=== PATIENT | male | born 1990 | race Caucasian/White ===

== ENCOUNTER → 2017-11-30 16:45 | Outpatient (CLI) | payer SELFPAY ==
[2017-11-30 18:29] LABS: Semen Viscosity Normal (Normal); Volume,Semen 3.8 ml (2.0-5.0)
[2017-11-30 18:30] LABS: Motility Quality Rapid Progression (Mod-Rapid); PH,Semen 8.5 (7.3-8.3); Sperm Count 101 mil/mm3 (20-160); Sperm Morphology Normal (Normal); Sperm Motility 80 % (50-90)
[2017-11-30 20:20] LABS: 3Hr Motility Quality Rapid Progression (Mod-Rapid); 3Hr Sperm Motility 80 % (50-60)
== END ==
PROVIDERS: Visit Provider Obstetrics & Gynecology
DX: Z31.41 Encounter for fertility testing (principal)
CPT/HCPCS: 89320

== ENCOUNTER → 2018-09-02 09:40 | Outpatient (POV) | payer SELFPAY | PROVIDERS: Visit Provider Dentist | DX: Z00.00 Encounter for general adult medical examination without abnormal findings (principal) ==

== ENCOUNTER 2021-09-28 10:23 | Emergency (ER) | payer MEDICAID, SELFPAY ==
[2021-09-28] VITALS (7 sets, daily range): BP systolic 118–132; BP diastolic 66–74; PULSE 74–87; RESP 12–18; TEMP 36.6–37.4; O2SAT 98–99; BMI 22.4
--- NOTE | 2021-09-28 11:07 | HMH.EDGENADL ---
ED Disposition Clinical Impression: Abdominal pain, Diarrhea, Nausea Disposition: Home, Self-Care Condition on Discharge: Good Instructions: DI for Nausea -- Adult, DI for Diarrhea and Traveler's Diarrhea -- Adult Prescriptions: Dicyclomine HCl [Bentyl 10mg capsule] 10 mg PO TID PRN #12 cap PRN Reason: abdominal cramping Transmission Status: Pending to [facility] # Loperamide HCl [Loperamide] 2 mg PO QID PRN #16 tab PRN Reason: Diarrhea Transmission Status: Pending to [facility] # Referrals: Capo Abreu MD [Primary Care Provider] - - Critical Care Critical Care Time: No Attestation: On , the high probability of a clinically significant, sudden or life threatening deterioration of the following system(s) required my full and direct attention, intervention and personal management. The time I documented below is in addition to time spent performing reported procedures but includes the following listed in this critical care notation. Medical Decision Making - Donn Inquiry Pt receiving controlled substance: No Vital Signs: 09/28/21 10:24 09/28/21 12:00 09/28/21 12:04 Temperature 99.4 F Temperature Source Oral Pulse Rate 76 75 Pulse Rate [Left Radial] 78 Respiratory Rate 18 16 Blood Pressure 122/67 122/67 Blood Pressure [Right Arm] 129/71 Blood Pressure Mean 79 Blood Pressure Mean [Right Arm] 90 Blood Pressure Source Automatic Cuff Blood Pressure Position Sitting 02 Sat by Pulse Oximetry 98 98 98 Oxygen Delivery Method Room Air Room Air - Lab Data Lab Results 09/28/21 11:15: WBC 11.2 H, RBC 5.38, Hgb 16.4, Hct 48.1, MCV 89.3, MCH 30.4, MCHC 34.0, RDW 12.7, Plt Count 203, MPV 8.2, Neut % (Auto) 80.4 H, Lymph % (Auto) 12.1, [place] % (Auto) 4.9, Eos % (Auto) 2.2, Baso % (Auto) 0.4, Neut # (Auto) 9.0 H, Lymph # (Auto) 1.4, [place] # (Auto) 0.5, Eos # (Auto) 0.3, Baso # (Auto) 0.0 09/28/21 11:15: Sodium 134 L, Potassium 3.6, Chloride 102, Carbon Dioxide 26, Anion Gap 9.6, BUN 10, Creatinine 0.90, Estimated Creat Clear 134, Estimated GFR 98, Est GFR ( Amer) 119, Glucose 84, Calcium 8.5, Total Bilirubin 0.9, AST 28, ALT 28, Alkaline Phosphatase 67, Total Protein 7.6, Albumin 4.8, Globulin 2.8, Albumin/Globulin Ratio 1.7, Lipase 40 09/28/21 11:15: Lactate 0.7 09/28/21 11:47: Urine Color Yellow, Urine Appearance Clear, Urine pH 6.0, Ur Specific [place] <= 1.005, Urine Protein Negative, Urine Glucose (UA) Negative, Urine Ketones Negative, Urine Blood Negative, Urine Nitrate Negative, Urine Bilirubin Negative, Urine Urobilinogen 0.2, Ur Leukocyte Esterase Negative, Urine RBC None, Urine WBC None, Ur Squamous Epith Cells Occasional, Urine Bacteria Trace Result diagrams: 09/28/21 11:15 09/28/21 11:15 Orders (Tests/Meds): ED MEDICATIONS Discontinued Medications Generic Name Dose Route Start Last Admin Trade Name Freq PRN Reason Stop Dose Admin Belladonna Alkaloids 60 ml 09/28/21 11:06 09/28/21 11:33 Gi Cocktail 60ml Udc PO 09/28/21 11:07 60 ml ONCE ONE Administration Dicyclomine HCl 20 mg 09/28/21 11:06 09/28/21 11:34 Dicyclomine 10mg Capsule PO 09/28/21 11:07 20 mg ONCE ONE Administration Lactated Ringer's 1,000 mls @ 999 mls/hr 09/28/21 11:15 09/28/21 11:34 Lactated Ringer's 1000 Ml Bag IV 09/28/21 12:15 999 mls/hr .Q1H1M TANYA Administration Iopamidol 75 ml 09/28/21 12:37 09/28/21 12:38 Iopamidol-370 (76%);100ml Bottle IV 09/28/21 12:38 75 ml ONCE ONE Administration Ondansetron HCl 4 mg 09/28/21 11:05 09/28/21 11:34 Ondansetron 4mg/2ml Vial IV 09/28/21 11:06 4 mg ONCE ONE Administration Sodium Chloride 10 ml 09/28/21 12:37 09/28/21 12:38 Sodium Chloride 0.9% 10ml Syr (Rad Only) IV 09/28/21 12:38 10 ml ONCE ONE Administration ORDERS Category Date Time Status Rapid PCR Covid and Flu A/B Stat Lab 09/28/21 11:05 Ordered Medical Decision Narrative: 31 yo male pr
[2021-09-28 11:26] LABS: Basophils % 0.4 % (0.1-2.0); Eosinophils # 0.3 K/mm3 (0.0-0.4); Eosinophils % 2.2 % (0.1-12.0); Hematocrit 48.1 % (42.0-52.0); Hemoglobin 16.4 g/dL (14.1-18.0); Lymphocytes # 1.4 K/mm3 (0.7-4.5); Lymphocytes % 12.1 % (10-50); Mean Corpuscular Hemoglobin 30.4 pg (27.0-31.2); Mean Corpuscular Volume 89.3 fl (80-94); Mean Platelet Volume 8.2 fl (7.4-10.4); Monocytes # 0.5 K/mm3 (0.1-1.0); Monocytes % 4.9 % (1.7-9.3); Neutrophils % 80.4 % (37.0-80.0); Platelet Count 203 K/mm3 (142-424); Red Blood Count 5.38 M/mm3 (4.60-6.20); Red Cell Distribution Width 12.7 % (11.5-17.5); White Blood Count 11.2 K/mm3 (4.8-10.8)
[2021-09-28 11:27] LABS: Chloride 102 mmol/L (98-107)
[2021-09-28 11:28] LABS: Potassium 3.6 mmoL/L (3.5-5.1); Sodium 134 mmol/L (136-145)
[2021-09-28 11:30] LABS: Alanine Aminotransferase 28 U/L (12-78); Alkaline Phosphatase 67 U/L (38-126); Anion Gap 9.6 mEq/L (5-15); Aspartate Amino Transferase 28 U/L (17-59); Bilirubin,Total 0.9 mg/dl (0.2-1.3); Blood Urea Nitrogen 10 mg/dl (9-20); Carbon Dioxide 26 mmol/L (22.0-30.0); Creatinine Clearance Estimated 134 mL/min (50-200); Estimated Glomerular Filt Rate 98 ml/min (>60); GFR (African American) 119 ML/MIN (>60); Lactic Acid 0.7 mmol/L (0.7-2.1)
[2021-09-28 11:31] LABS: Albumin Level 4.8 g/dl (3.5-5.0); Albumin/Globulin Ratio 1.7 (1.1-1.8); Calcium 8.5 mg/dl (8.4-10.2); Globulin 2.8 g/dL (1.3-3.2); Glucose 84 mg/dl (74-100); Lipase 40 U/L (23-300); Total Protein,Serum 7.6 g/dl (6.3-8.2)
[2021-09-28 12:02] LABS: Microscopic, Urine URINE MICROSCOPIC (MICROSCOPIC)
[2021-09-28 12:05] LABS: Appearance,Urine CLEAR (Clear); Bilirubin,Urine Negative (Negative); Blood, Urine Negative (Negative); Color,Urine YELLOW (Yellow); Glucose,Urine (UA) Negative (Negative); Ketones,Urine Negative (Negative); Leukocyte Esterase,Urine Negative (Negative); Nitrate,Urine Negative (Negative); Protein,Urine Negative (Negative); Specific Gravity, Urine <= 1.005 (1.005-1.030); Urobilinogen,Urine 0.2 EU/dl (0.2)
--- NOTE | 2021-09-28 12:12 | CT_ITS ---
PROCEDURE INFORMATION: Exam: CT Abdomen And Pelvis With Contrast Exam date and time: 09/28/2021 12:12 PM Age: 31 years old Clinical indication: Other: Diarrhea 2 weeks and rlq pain; Additional info: Maximal ttp in rlq, HX progressive diarrhea TECHNIQUE: Imaging protocol: Computed tomography of the abdomen and pelvis with contrast. Radiation optimization: All CT scans at this facility use at least one of these dose optimization techniques: automated exposure control; mA and/or kV adjustment per patient size (includes targeted exams where dose is matched to clinical indication); or iterative reconstruction. Contrast material: ISOVUE; Contrast volume: 75 ml; Contrast route: IV; COMPARISON: No relevant prior studies available. FINDINGS: Liver: The liver is normal in appearance, without evidence of mass or intrahepatic bile duct dilatation. Gallbladder and bile ducts: The gallbladder is normal appearance, without evidence of gallbladder wall thickening or pericholecystic fluid. Pancreas: The pancreas is normal in appearance, without evidence of mass, cyst, peripancreatic inflammatory change, or pancreatic duct dilatation. Spleen: The spleen is normal in appearance. Adrenal glands: Both adrenal glands are normal in appearance, without evidence of mass or focal abnormality. Kidneys and ureters: The left kidney is normal in appearance, without evidence of nephrolithiasis or hydronephrosis. There are focal areas of cortical thinning and scar in the right kidney. There is no nephrolithiasis or hydronephrosis. Stomach and bowel: The stomach is normal in appearance, without evidence of mass or wall thickening. There is mild fluid-filled dilatation distention of several loops of small bowel, mostly jejunum and proximal ileum. The terminal ileum and cecum are within normal limits. The ascending colon is incompletely distended. There may be some bowel wall thickening. There may be some bowel wall thickening versus incomplete distension of the descending colon. The sigmoid colon is nondistended. Appendix: No evidence of appendicitis. The appendix is not clearly identified. Intraperitoneal space: Unremarkable. No free air. No significant fluid collection. Vasculature: Unremarkable. No abdominal aortic aneurysm. Lymph nodes: Unremarkable. No enlarged lymph nodes. Urinary bladder: Unremarkable as visualized. Reproductive: Unremarkable as visualized. Bones/joints: Unremarkable. No acute fracture. Soft tissues: Unremarkable. IMPRESSION: 1. Mild fluid-filled distention of multiple loops of small bowel, mostly jejunum and proximal ileum. Additionally, there is all possible bowel wall thickening versus incomplete distension of portions of the colon. No perienteric or pericolonic inflammatory stranding of mesenteric fat is identified. These are nonspecific findings which may be seen with an infectious or inflammatory enteritis or enterocolitis. Clinical correlation is recommended. 2. Additional incidental findings as described. Please see above for detail.
[2021-09-28 12:24] LABS: Bacteria,Urine Trace /lpf; Squamous Epithelial Cell,Urine Occasional #/hpf (0-5)
== END 2021-09-28 14:57 | disposition home or self-care (01) ==
PROVIDERS: Emergency Provider Student in an Organized Health Care Education/Training Program; PCP Emergency Medicine
DX: K58.0 Irritable bowel syndrome with diarrhea (principal)
CPT/HCPCS: 74177; 80053; 81001; 83605; 83690; 85025; 96365; 96374; 96375; 99283; 99284; J2405; Q9967

== ENCOUNTER 2023-02-12 17:24 | Emergency (ER) | payer MEDICAID, SELFPAY ==
[2023-02-12 17:43] VITALS: BP 138/68; PULSE 67; RESP 18; TEMP 36.8; O2SAT 97; BMI 21.2
--- NOTE | 2023-02-12 17:46 | EXP.UTC ---
Discharge Plan Disposition Patient Disposition: Home, Self-Care Condition: Good Prescriptions Prescriptions: New ibuprofen [IBU] 800 mg tablet 800 mg PO Q8HP PRN (Reason: Moderate Pain) Qty: 30 0RF dicyclomine 10 mg capsule 10 mg PO TID PRN (Reason: abdominal pain) Qty: 30 0RF No Action loperamide 2 mg tablet 2 mg PO QID PRN (Reason: Diarrhea) Qty: 16 0RF Rx Instructions: No more than total of 8 mg (4 tabs) per day. Take one tab as needed up for diarrhea/loose stools up to four times per day. polyethylene glycol 3350 17 gram/dose powder 17 g PO BID Qty: 238 2RF dicyclomine 10 mg capsule 10 mg PO TID PRN (Reason: abdominal cramping) Qty: 30 0RF Referrals Follow up/Referrals: Capo Abreu MD [Primary Care Provider] - See instructions Activity Restrictions/Add. Instructions Additional Instructions/Restrictions: Go home and rest. It would be best if you rested tomorrow too. No heavy lifting. No twisting for the next couple of days. Take the ibuprofen as directed. Follow up with your regular doctor. GO TO THE ER FOR ANY WORSENING SYMPTOMS OR CONCERN, ESPECIALLY BOWEL OR BLADDER ISSUES, SADDLE AREA NUMBNESS, FEVER, ETC Clinical Impressions Clinical Impression: Back pain, thoracic Stand Alone Forms Stand Alone Forms: Work/School Release Instructions Patient Instructions: Ibuprofen, DI for Thoracic Back Pain, Thoracic Back Pain Discharge ED Provider: Todd Dial [facility] General Stated complaint: back and pelvic pain Time Seen by Provider: 02/12/23 17:45 History of Present Illness Provider Complaint: He states that he has had low back pain since this morning. He denies any known injury. His brother was recently diagnosed with a UTI with similar symptoms, so he came in to be checked for that. Related Data Previous Rx's Medication Instructions Recorded loperamide 2 mg tablet 2 mg PO QID PRN Diarrhea #16 tabs 10/04/21 polyethylene glycol 3350 17 17 g PO BID #238 grams 10/04/21 gram/dose oral powder dicyclomine 10 mg capsule 10 mg PO TID PRN abdominal 11/04/21 cramping #30 caps dicyclomine 10 mg capsule 10 mg PO TID PRN abdominal pain 02/12/23 #30 caps ibuprofen 800 mg tablet (IBU) 800 mg PO Q8HP PRN Moderate Pain 02/12/23 #30 tabs Allergies Allergy/AdvReac Type Severity Reaction Status Date / Time No Known Allergies Allergy Verified 10/04/21 16:26 [facility] Disclaimer: The information contained in this section may have been updated after the patient was seen, as this information can be updated by other users. Social History Smoking Status: Current every day smoker alcohol intake: never current occupational status: employed Travel in the last 8 weeks: None ROS Obtained: Yes All systems reviewed & no additional complaints except as documented Constitutional Constitutional: Denies chills and Denies fever(s) Eyes Eyes: Denies eye discharge ENT Ears, Nose, Mouth, and Throat: Denies dizziness, Denies otalgia and Denies sore throat Cardiovascular Cardiovascular: Denies chest pain Respiratory Respiratory: Denies shortness of breath, Denies chest congestion, Denies cough, Denies stridor and Denies wheezing Gastrointestinal Gastrointestingal: Denies nausea or vomiting Musculoskeletal Musculoskeletal: Reports system reviewed and no additional complaints, except as documented and Denies arthralgias Integumentary/Breasts Skin/Breast: Denies rash Neurologic Neurologic: Denies dizziness and Denies paresthesias Allergic/Immunologic Allergic/Immunologic: Denies wheezing Physical Exam General General appearance: alert and in no apparent distress Head Head exam: atraumatic, normocephalic and normal inspection Eye Eye exam: Present normal appearance, PERRL and EOMI ENT ENT exam: Present normal exam, normal oropharynx, mucous membranes moist, TM's normal bilaterally and normal exter
[2023-02-12 18:10] LABS: Microscopic, Urine URINE MICROSCOPIC (MICROSCOPIC)
[2023-02-12 18:16] LABS: Appearance,Urine CLEAR (Clear); Bilirubin,Urine Negative (Negative); Blood, Urine Negative (Negative); Color,Urine YELLOW (Yellow); Glucose,Urine (UA) Negative (Negative); Ketones,Urine Negative (Negative); Leukocyte Esterase,Urine Negative (Negative); Nitrate,Urine Negative (Negative); PH,Urine 5.5 (5.0-8.5); Protein,Urine Negative (Negative); Urobilinogen,Urine 0.2 EU/dl (0.2)
[2023-02-12 18:21] LABS: Squamous Epithelial Cell,Urine Occasional #/hpf (0-5); WBC,Urine Occasional #/hpf (0-3)
[2023-02-12 18:42] VITALS: BP 138/68; PULSE 67; RESP 18; TEMP 36.8; O2SAT 97
== END 2023-02-12 18:43 | disposition home or self-care (01) ==
PROVIDERS: Emergency Provider Nurse Practitioner Family; PCP Emergency Medicine
DX: M54.6 Pain in thoracic spine (principal); F17.210 Nicotine dependence, cigarettes, uncomplicated
CPT/HCPCS: 81001; 87086; 99204; 99212; G0463

== ENCOUNTER 2023-04-30 09:30 | Emergency (ER) | payer MEDICAID, SELFPAY ==
[2023-04-30 09:40] VITALS: BP 134/78; PULSE 57; RESP 19; TEMP 36.7; O2SAT 98; BMI 22.9
--- NOTE | 2023-04-30 09:53 | EXP.UTC ---
Discharge Plan Disposition Patient Disposition: Home, Self-Care Condition: Good Prescriptions Prescriptions: New benzonatate 100 mg capsule 100 mg PO TID PRN (Reason: cough) Qty: 30 0RF methylprednisolone [Medrol (Ramiro)] 4 mg tablets,dose pack See Rx Instructions .Route .COMPLEX 6 Days Qty: 21 0RF Rx Instructions: taper pack; azithromycin [Zithromax Z-Ramiro] 250 mg tablet See Rx Instructions .ROUTE .COMPLEX 5 Days Qty: 6 0RF Rx Instructions: For 250 mg dose pack: take 500 mg today (day 1), then 250 mg for 4 days (days 2-5) ondansetron 4 mg tablet,disintegrating 4 mg PO Q8H PRN (Reason: nausea and vomiting) Qty: 10 0RF Referrals Follow up/Referrals: Capo Abreu MD [Primary Care Provider] - See instructions Activity Restrictions/Add. Instructions Additional Instructions/Restrictions: *Monitor Temp, Over the counter Motrin or Tylenol as directed/as needed Tylenol every 4 hours and Motrin every 6 hours (as long as your family doctor has told you that you can take it) for fever or pain. and straight to ER if unable to lower temp less than 101.0 after medication given *Warm salt water gargles may help to soothe the throat *Throat Lozenges? *Warm fluids like tea with honey may help to soothe the throat? *Sleep elevated *Humidifier/Vaporizer Your throat swab was sent for culture. Those results are typically sent to your primary care. Be sure to follow up in 2-3 days with your family doctor/primary care physician if no improvement so they can review those result and treat if necessary. If you don?t have a primary care doctor, I recommend you get one but in the mean time, you will have to return to a walk in clinic Follow up IMMEDIATELY for new or worsening symptoms or no Noticeable improvement over the next 48-72 hours. 911 for difficulty breathing or swallowing Clinical Impressions Clinical Impression: Pharyngitis Qualifiers: Pharyngitis/tonsillitis etiology: unspecified etiology Qualified Code(s): J02.9 - Acute pharyngitis, unspecified Instructions Patient Instructions: Sore Throat, Nausea and Vomiting-Adult Discharge ED Provider: Darya Santo [facility] [place] HPI General Stated complaint: suspected strep vomiting congestion Mode of Arrival: Ambulatory Source of Information: Patient Limitations: No Limitations Time Seen by Provider: 04/30/23 09:53 Description of Symptoms (Recalled from Triage Doc. by RN): PATIENT C/O SORE THROAT, FATIGUE, AND VOMITING SINCE YESTERDAY HEENT Symptoms (Recalled from RN notes): Yes Resp Symptoms (Recalled from RN notes): No Skin Symptoms (Recalled from RN notes): No MS Symptoms (Recalled from RN notes): No Functional Status (Recalled from RN notes): WNL History of Present Illness Provider Complaint: Patient states that he feels like he may have strep throat States that he has been having sore throat, feeling achy and n/v States that this morning his throat was hurting worse so he came in to get checked Related Data Previous Rx's Medication Instructions Recorded azithromycin 250 mg tablet See Rx Instructions PO .COMPLEX 5 04/30/23 (Zithromax Z-Ramiro) days #6 tabs benzonatate 100 mg capsule 100 mg PO TID PRN cough #30 caps 04/30/23 methylprednisolone 4 mg tablets in See Rx Instructions .Route 04/30/23 a dose pack (Medrol (Ramiro)) .COMPLEX 6 days #21 tabs ondansetron 4 mg disintegrating 4 mg PO Q8H PRN nausea and 04/30/23 tablet vomiting #10 tabs Allergies Allergy/AdvReac Type Severity Reaction Status Date / Time No Known Allergies Allergy Verified 10/04/21 16:26 Worker's Comp Is this a Worker's Comp case?: No [facility] Disclaimer: The information contained in this section may have been updated after the patient was seen, as this information can be updated by other users. Social History Smoking Status: Current every day smoker alcohol intake: never cur
[2023-04-30 10:00] VITALS: BP 134/78; PULSE 57; RESP 19; TEMP 36.7; O2SAT 98
[2023-04-30 10:02] LABS: UTC Strep Screen (Rapid) Negative (Negative)
== END 2023-04-30 10:05 | disposition home or self-care (01) ==
PROVIDERS: Emergency Provider Nurse Practitioner; PCP Emergency Medicine
DX: J02.9 Acute pharyngitis, unspecified (principal); R11.2 Nausea with vomiting, unspecified; F17.210 Nicotine dependence, cigarettes, uncomplicated
CPT/HCPCS: 87880; 99212; 99214; G0463

== ENCOUNTER 2023-08-27 09:32 | Emergency (ER) | payer MEDICAID, SELFPAY ==
[2023-08-27 09:40] VITALS: BP 133/78; PULSE 78; RESP 19; TEMP 36.9; O2SAT 98; BMI 23.6
--- NOTE | 2023-08-27 09:52 | ED_ITS ---
Discharge Plan Disposition Patient Disposition: Home, Self-Care Condition: Good Prescriptions Prescriptions: New [id number]-[id number] [Bromfed DM] 2-30-10 mg/5 mL Syrup 5 ml PO Q6H PRN (Reason: Cough) Qty: 240 0RF azithromycin [Zithromax] 250 mg tablet 250 mg PO UD DOSE PK Qty: 6 0RF Rx Instructions: Take two (2) tablets today, then one (1) tablet days #2 thru #5 methylprednisolone 4 mg Tablets,Dose Pack 4 mg PO DIRECTED 6 Days Qty: 21 0RF Rx Instructions: Take 1 pack as directed for 6 days Referrals Follow up/Referrals: Provider,Referral, MD [Primary Care Provider] - See instructions Activity Restrictions/Add. Instructions Additional Instructions/Restrictions: Drink plenty of fluids. Take tylenol or ibuprofen for pain or fever. Take the medications as directed. Follow up with your regular doctor. GO TO THE ER FOR ANY WORSENING SYMPTOMS Clinical Impressions Clinical Impression: Pharyngitis, Acute viral syndrome Instructions Patient Instructions: DI for Pharyngitis/Tonsillopharyngitis -- Adult Discharge ED Provider: Todd Dial [facility] General Stated complaint: SORE THROAT Time Seen by Provider: 08/27/23 09:52 History of Present Illness Provider Complaint: He states that for the past 2 days he has had fever, chills, body aches, malaise, and sore throat. Related Data Previous Rx's Medication Instructions Recorded azithromycin 250 mg tablet 250 mg PO UD DOSE PK #6 tabs 08/27/23 (Zithromax) fvhrrhktwmybpxv-cokfghjflxcnkta-[id number] 5 ml PO Q6H PRN Cough #240 mL 08/27/23 2 mg-30 mg-10 mg/5 mL oral syrup (Bromfed DM) methylprednisolone 4 mg tablets in 4 mg PO DIRECTED 6 days #21 tabs 08/27/23 a dose pack Allergies Allergy/AdvReac Type Severity Reaction Status Date / Time No Known Allergies Allergy Verified 08/27/23 09:52 [facility] Disclaimer: The information contained in this section may have been updated after the patient was seen, as this information can be updated by other users. Social History Smoking Status: Current every day smoker alcohol intake: never current occupational status: employed Travel in the last 8 weeks: None ROS Obtained: Yes All systems reviewed & no additional complaints except as documented Constitutional Constitutional: Reports chills and Reports fever(s) Eyes Eyes: Denies eye discharge ENT Ears, Nose, Mouth, and Throat: Reports as per HPI Cardiovascular Cardiovascular: Denies chest pain Respiratory Respiratory: Denies chest congestion and Reports cough Gastrointestinal Gastrointestingal: Reports nausea; Denies abdominal pain, constipation, cramping, diarrhea or vomiting Musculoskeletal Musculoskeletal: Denies arthralgias Integumentary/Breasts Skin/Breast: Denies rash Neurologic Neurologic: Denies paresthesias Physical Exam General General appearance: alert and in no apparent distress Head Head exam: atraumatic, normocephalic and normal inspection Eye Eye exam: Present normal appearance, PERRL and EOMI ENT ENT exam: Present mucous membranes moist and normal external ear exam Expanded ENT Exam TM/Canal exam: Bilateral TM: erythema and bulging Nose exam: Absent sinus tenderness Mouth exam: Present normal external inspection; Absent drooling Teeth exam: Present normal inspection Throat exam: Present tonsillar erythema, tonsillomegaly and tonsillar exudate Neck Neck exam: Present normal inspection, full ROM and trachea midline; Absent tenderness, meningismus or lymphadenopathy Chest Chest inspection: Present normal inspection and symmetric chest wall rise; A bsent tenderness Respiratory Respiratory exam: Present normal lung sounds bilaterally; Absent respiratory distress, wheezes or stridor Cardiovascular Cardiovascular exam: Present regular rate and normal rhythm; Absent systolic murmur or diastolic murmur Abdominal Exam Abdominal exam: Present soft and normal bowel sounds; Absent distention, tenderness, guarding, rebound or rigidity Extremities Exam Extremities exam: Present normal inspection and normal capillary refill; Absent calf tenderness Back Exam Back exam: Present normal inspection and full ROM; Absent tenderness, CVA tenderness (R) or CVA tenderness (L) Neurological Exam Neurological exam: Present alert, oriented X3 and CN II-XII intact Psychiatric Psychiatric exam: Present normal affect and normal mood Skin Skin exam: Present warm, dry, intact and normal color Medical Decision Making Medical Records Medical records reviewed: No I reviewed the patient's medical records. Donn Inquiry Pt receiving controlled substance: No Lab Data Lab results reviewed: Yes I reviewed the patient's lab results.
[2023-08-27 10:01] LABS: UTC Strep Screen (Rapid) Negative (Negative)
[2023-08-27 11:18] VITALS: BP 133/78; PULSE 78; RESP 19; TEMP 36.9; O2SAT 98
[2023-08-27 11:35] LABS: UTC Influenza A Antigen Negative (Negative); UTC Influenza B Antigen Negative (Negative)
== END 2023-08-27 11:18 | disposition home or self-care (01) ==
PROVIDERS: Emergency Provider Nurse Practitioner Family
DX: U07.1 COVID-19 (principal); J02.9 Acute pharyngitis, unspecified; R50.9 Fever, unspecified; R05.9 Cough, unspecified; R53.81 Other malaise; M79.18 Myalgia, other site; F17.210 Nicotine dependence, cigarettes, uncomplicated
CPT/HCPCS: 87635; 87804; 87880; 99212; 99214; G0463